=== PATIENT | female | born 1975 | race Caucasian/White ===

== ENCOUNTER → 2018-02-27 15:54 | Outpatient (CLI) | payer BC, SELFPAY ==
--- NOTE | 2018-02-27 15:54 | DT_ITS ---
This patient was seen during an EMR downtime February 23, 2018 - March 02, 2018. This patient may have a combination of paper and electronic documentation or all paper documentation. All documentation is viewable within the e-chart portion of [facility] for each patient visit.
[2018-02-28 06:14] LABS: Free T3 2.5 pg/mL (2.18-3.98); T4 Free Direct 1.16 ng/dL (0.76-1.46); Thyroid Stim Hormone (TSH) 2.43 uIU/mL (0.358-3.74)
== END ==
PROVIDERS: Family Provider Family Medicine; PCP Family Medicine; Visit Provider Family Medicine
DX: E03.9 Hypothyroidism, unspecified (principal)
CPT/HCPCS: 36415; 84439; 84443; 84481

== ENCOUNTER → 2018-05-08 15:56 | Outpatient (CLI) | payer BC, SELFPAY | PROVIDERS: Family Provider Family Medicine; PCP Family Medicine; Visit Provider Family Medicine | DX: Z12.31 Encounter for screening mammogram for malignant neoplasm of breast (principal) | CPT/HCPCS: 77063; 77067 ==

== ENCOUNTER → 2018-10-26 16:38 | Outpatient (CLI) | payer BC, SELFPAY ==
[2018-10-29 13:29] LABS: HPV Reflexed? NOT INDICATED
== END ==
PROVIDERS: Family Provider Family Medicine; PCP Family Medicine; Visit Provider Family Medicine
DX: Z12.4 Encounter for screening for malignant neoplasm of cervix (principal); Z01.419 Encounter for gynecological examination (general) (routine) without abnormal findings
CPT/HCPCS: 88175; G0145

== ENCOUNTER → 2018-11-17 15:30 | Outpatient (CLI) | payer BC, SELFPAY ==
--- NOTE | 2018-11-17 12:35 | US_ITS ---
STUDY: ULTRASOUND OF THE FEMALE PELVIS - COMPLETE REASON FOR EXAM: Female, 43 years old. Menorrhalgia LMP: November 09, 2018 TECHNIQUE: Transabdominal and endovaginal TECHNICAL QUALITY: Adequate. COMPARISON: None. FINDINGS: The uterus is anteverted and is in a midline position. The uterus measures 12.3 x 8.3 x 7.1 cm. Nabothian cysts at the uterine cervix. The endometrium measures 8.4 mm in thickness, and is hyperechoic. There is no demonstrated endometrial mass. There is heterogeneity of the myometrium with a 7.3 x 5.7 x 5.3 cm fibroid noted. The patient does not have an I.U.D. The right ovary is not visualized. The left ovary is visualized. The left ovary measures 4.3 x 2.4 x 2.3 cm. There is a 2 x 1.7 x 1.2 cm left ovarian cyst. There is normal arterial and normal venous vascularity. There is no fluid in the cul-de-sac. The urinary bladder has a volume of 266 cc. US/Pelvic (Non ) IMPRESSION: Uterine fibroid. Nabothian cysts. Left ovarian cyst. Nonvisualization of the right ovary. Electronically Signed: Peng Umanzor DO at 0:09 EST Tel [phone], Service support ,
--- NOTE | 2018-11-17 12:55 | US_ITS ---
STUDY: ULTRASOUND OF THE FEMALE PELVIS - COMPLETE REASON FOR EXAM: Female, 43 years old. Menorrhalgia LMP: November 09, 2018 TECHNIQUE: Transabdominal and endovaginal TECHNICAL QUALITY: Adequate. COMPARISON: None. FINDINGS: The uterus is anteverted and is in a midline position. The uterus measures 12.3 x 8.3 x 7.1 cm. Nabothian cysts at the uterine cervix. The endometrium measures 8.4 mm in thickness, and is hyperechoic. There is no demonstrated endometrial mass. There is heterogeneity of the myometrium with a 7.3 x 5.7 x 5.3 cm fibroid noted. The patient does not have an I.U.D. The right ovary is not visualized. The left ovary is visualized. The left ovary measures 4.3 x 2.4 x 2.3 cm. There is a 2 x 1.7 x 1.2 cm left ovarian cyst. There is normal arterial and normal venous vascularity. There is no fluid in the cul-de-sac. The urinary bladder has a volume of 266 cc. US/Transvaginal Non- IMPRESSION: Uterine fibroid. Nabothian cysts. Left ovarian cyst. Nonvisualization of the right ovary. Electronically Signed: Peng Umanzor DO at 0:09 EST Tel [phone], Service support ,
== END ==
PROVIDERS: Family Provider Family Medicine; PCP Family Medicine; Referring Provider Family Medicine; Visit Provider Family Medicine
DX: N85.2 Hypertrophy of uterus (principal); N92.0 Excessive and frequent menstruation with regular cycle
CPT/HCPCS: 76830; 76856; 93976

== ENCOUNTER 2019-02-04 09:57 | Day surgery (SDC) | payer BC, SELFPAY ==
[2018-12-02 09:23] VITALS: BMI 37.0
--- NOTE | 2019-01-25 13:25 | EKG12_ITS ---
Test Reason : PRE-OP Blood Pressure : / mmHG Vent. Rate : 068 BPM Atrial Rate : 068 BPM P-R Int : 156 ms QRS Dur : 098 ms QT Int : 394 ms P-R-T Axes : 028 -09 -02 degrees QTc Int : 418 ms Normal sinus rhythm Normal ECG No previous ECGs available Confirmed by AIDEN LINN, JEY ([id number]), managing editor DINESH MCKEON ([id number]) on 01/26/2019 1:55:18 PM Referred By: Darling West Confirmed By:JEY WOLFE MD
[2019-01-25 14:14] LABS: BUN 24 mg/dL (7-18); Creatinine, Serum 1.23 mg/dL (0.55-1.02); Glucose 89 mg/dL (74-106)
[2019-01-25 14:15] LABS: Anion Gap 8 (5-15); BUN/Creat Ratio 19.5 RATIO (10-20); Calcium,Total 8.3 mg/dL (8.5-10.1); Chloride 110 mmol/L (98-107); EST Glomerular Filtration Rate 50 mL/min (>60); Est Glom Filt Rate - Afr Amer 61 mL/min (>60); Potassium 3.8 mmol/L (3.5-5.1); Sodium Level 141 mmol/L (136-145); Thyroid Stim Hormone (TSH) 2.56 uIU/mL (0.358-3.74)
[2019-01-25 16:39] VITALS: BMI 37.0
--- NOTE | 2019-02-03 03:02 | PCM.HPOB.BLA ---
- Problem List (1) Dysmenorrhea Status: Acute (2) Uterine fibroid Status: Acute Qualifiers: Comment: lavh bs cysto (3) Essential hypertension Status: Chronic (4) Hypothyroidism Status: Chronic History and Physical Date of Admission: 02/04/19 Vital Signs 01/25/19 Height 5 ft 3 in 01/25/19 Weight: 211 lb 2 oz 01/25/19 Body Mass Index (BMI) 37.3 01/25/19 Blood Pressure 158/90 H Intake Visit Reasons: LAVH BS CYSTO ERAS PRE OP Toilet Products Molder Required: No Is patient in pain?: No Allergies sulfamethoxazole [From Bactrim] Allergy (Mild, Verified 01/25/19 16:07) hives trimethoprim [From Bactrim] Allergy (Mild, Verified 01/25/19 16:07) hives Medications levothyroxine 25 mcg capsule 25 mcg PO DAILY 12/02/18 [History Confirmed 01/25/19] lisinopril 20 mg-hydrochlorothiazide 25 mg tablet 1 tab PO DAILY 12/02/18 [History Confirmed 01/25/19] Is last menstrual period known: No Patient : No : No [facility] Medical History Hypothyroidism (Chronic) Essential hypertension (Chronic) Abnormal Pap smear of cervix (Acute) Surgical History S/P (Resolved) Family History Father CVA (cerebral vascular accident) Hypertension Parkinsons disease Diabetes Mother Hypertension Sister Diabetes Social History Smoking Status: Never smoker alcohol intake: never substance use type: does not use caffeine: Yes what type of physical activity do you participate in: none seatbelt use: always do you feel safe at home: Yes additional social history: - [place] Patient works at [employer] LAVH BS CYSTO ERAS PRE OP: Details: LYUBOV ROBERTS is a 43 year old who presents for preop visit. she has heavy vaginal bleding with menses, has an enlarged firboid uterus 8 cm and 3 previous c sections. Female Reproductive History Menopausal Symptoms: No night sweats Pregancy History 4 Elective abortions Hx Para 3 Spontaneous abortions Hx # Term Pregnancies Ectopic pregnancies Hx # Pregnancies Multiple births # of living children Past Pregnancies Del. Date Name GA/Weeks Outcome Route Bth Weight Infant Gen Labor Lgth Anesthesia Del Locatn Provider FOB Unknown Ajay-1990 Unknown Debbie-1993 Unknown Ren-1998 ROS Const Constitutional: Denies fatigue, night sweats, weight gain or weight loss ENT ENT: Reports system reviewed and no additional complaints, except as docu Cardio Card: Denies chest pain Resp Resp: Denies cough or dyspnea GI GI: Reports as per HPI; denies abdominal pain, constipation, nausea or vomiting : Denies nipple discharge Musc Musc: Denies joint pain, back pain or muscle weakness Skin Skin/Breast: Denies hair loss, change in hair, dry skin, breast lump, breast pain, breast skin changes or nipple discharge Neuro Neuro: Reports system reviewed and no additional complaints, except as docu Psych Psych: Reports system reviewed and no additional complaints, except as docu Endo Endo: Denies cold intolerance, excessive sweating, heat intolerance or increased thirst Chilo/Lymph Hematologic/Lymphatic: Denies easy bleeding, Denies easy bruising, Denies enlarged lymph nodes Exam Const General: cooperative, healthy appearing, comfortable, no acute distress, well developed Orientation: alert HENDC Head: normal to inspection, normocephalic Ears: hearing grossly normal bilaterally, external ears normal Nose: external nose normal, nares normal Face and sinus: normal facial exam Neck Neck: normal visual inspection, no lymphadenopathy Thyroid: thyroid normal Chest Chest palpation & inspection: normal inspection of the chest Resp Effort & Inspection: normal respiratory effort Auscultation: clear to auscultation bilaterally Cardio Rate: regular rate Rhythm: regular rhythm Heart Sounds: S1 normal, S2 normal GI Inspection: normal to inspection, non-distended Palpation: soft (enlarged uterus 14 weeks size), no hepatosplenomegaly Musc Other: gross motor intact no deficits, full bilateral strength Skin General: no rashes or lesions noted Neuro General: alert, awake, moves all extremities, no focal motor deficits Motor: muscle tone normal throughout Extrem General: normal to inspection, no pedal edema Psych Appearance: grossly normal Mental Status: mental status grossly normal Affect: normal affect Speech and Movement: speech and movement normal Assessment & Plan Problems 1. Uterine leiomyoma, unspecified location D25.9 lavh bs cysto 2. Dysmenorrhea N94.6 Plan discussed surgical risks including risks of anesthesia, infection, bleeding, injury to bowel, bladder or blood vessels, and patient wishes to proceed with surgery. Coding Level of Care Code No Charge Diagnoses Uterine leiomyoma, unspecified location D25.9 ??Uterine leiomyoma location: unspecified location Dysmenorrhea N94.6 UPDATE- I have seen the patient and performed any clinically relevant updates to the history and physical exam. Darling West MD
[2019-02-04] VITALS (12 sets, daily range): BP systolic 114–147; BP diastolic 65–93; PULSE 53–92; RESP 14–18; TEMP 36.3–37; O2SAT 97–100; BMI 36.5
--- NOTE | 2019-02-04 | HYST_PTH ---
PATIENT: LYUBOV ROBERTS LOC: [facility] [place] U#:[id number] AGE/SX: 43/F ROOM: RE02/04/[address]: Dr. Darling West MD : [id number] BED: DIS: 02/05/2019 SPEC #: [id number] RECD: 02/05/19 08:31 STATUS: SAMUEL ALEKSANDRA #: [id number] ROHAN: 02/04/19 00:[address]: Darling West DEPT: SURGICAL PATHOLOGY RECD BY: Minesh Thomas ENTERED: 02/05/19 09:10 SP TYPE: HYSTERECT OTHR DR: Dr. Tamica Looney DO Tissues: Uterus, NOS Procedures: Surgery Specimen Level V HEADER OPERATION: ERAS, laparoscopic-assisted vaginal hysterectomy, bilateral salpingectomy PRE-OP DIAGNOSIS: Uterine leiomyoma; dysmenorrhea TISSUE SUBMITTED: Uterus and bilateral fallopian tubes MICROSCOPIC DIAGNOSIS Uterus, hysterectomy: Cervix - nabothian cyst. Endometrium - proliferative endometrium with mild chronic inflammation. Myometrium - leiomyoma and focal superficial adenomyosis. Fallopian tubes - benign paratubal cysts. AM:phillip 02/09/19 MICROSCOPIC DESCRIPTION Slides are reviewed. GROSS DESCRIPTION Received in fixative is one container labeled with the patient's name and designated uterus. The specimen consists of a morcellated specimen received in eight fragments ranging in size from 1 to 13 cm and in aggregate weighing 268 gm. The presumed cervical fragment measures 6 cm in length. The presumed endocervical cavity is grossly unremarkable. A distinct endometrial cavity is not identified due to fragmentation of the specimen. The myometrium is lobulated and the cut surfaces are cee-white in color in an area measuring approximately 6 cm in greatest dimension. Two fallopian tubes are present. Each fallopian tube has an average length of 4.5 cm and a maximal diameter of 0.5 cm. Prototype Deicer Assembler sections are submitted as follows: 1 - cervix and endocervix, 2 & 3 - presumed endometrium and adjacent myometrium, 4 - myometrium, 5 & 6 - lobulated area of myometrium, presumed leiomyoma, 7 - one fallopian tube, 8 - the other fallopian tube. / AM:phillip 02/08/19 TC:1 CPT: 16267
[2019-02-04 10:36] LABS: Internal QC Validated? YES +Cl - CLEAR BKGD
[2019-02-04 10:37] LABS: Pregnancy, Urine Negative Negative
[2019-02-04 10:43] LABS: Hematocrit 37.2 % (37-47); Hemoglobin 12.5 g/dl (12.0-15.0); Mean Corp Hgb Conc 33.6 g/gl (32-36); Mean Corpuscular Hgb 28.6 pg (27.0-32.0); Mean Corpuscular Volume 85.1 fL (81-99); Mean Platelet Vol. 9.8 fl (6.2-12.0); Platelet Count 264 K/mm3 (150-450); RBC Distribution Width CV 12.6 % (11.6-14.6); RBC Distribution Width SD 38.2 fl (35.1-43.9); Red Blood Count 4.37 M/mm3 (4.2-5.4)
[2019-02-04 10:44] LABS: Scan Indicated on CBC? Y/N NO
[2019-02-04] MEDS: Scopolamine 1mg/72hr Patch 1 PATCH TRANSDERM. (10:55)
[2019-02-04] MEDS: Celecoxib 200 MG Capsule 400 MG PO (11:00)
[2019-02-04] MEDS: Gabapentin 600 MG Tablet PO (11:01)
[2019-02-04] MEDS: Acetaminophen 500 MG Tablet 1000 MG PO ×2 (11:01→19:20)
[2019-02-04] MEDS: Enoxaparin 40 MG/0.4 ML Syringe SC (11:02)
[2019-02-04] MEDS: Phenazopyridine 95 MG Tablet 190 MG PO (11:14)
[2019-02-04 11:25] LABS: Bedside Glucose 78 mg/dL (70-110)
[2019-02-04] MEDS: dexAMETHasone 10 MG/ML Vial 8 MG IV (11:40)
[2019-02-04] MEDS: Magnesium Sulfate 4gm/100mL 4 GM/100 ML IV.SOLN. IV (11:41)
[2019-02-04] MEDS: Lactated Ringers 1,000 ML 70 ML IV (11:41)
[2019-02-04] MEDS: Cefazolin 2 GM in 0.9% Normal Saline 100 ML IV (12:21)
[2019-02-04] MEDS: Bupivacaine 0.25% 30 ML Vial (15:00)
[2019-02-04] MEDS: Vasopressin 20 UNITS/ML Vial (15:31)
[2019-02-04] MEDS: Ondansetron 4 MG/2 ML Vial IV (15:58)
[2019-02-04] MEDS: Ketorolac 30 MG/ML Syringe IV (17:44)
--- NOTE | 2019-02-04 19:59 | PCM.OPRPT ---
Problem List (1) Dysmenorrhea Status: Acute (2) Uterine fibroid Status: Acute Qualifiers: Comment: lavh bs cysto (3) Essential hypertension Status: Chronic (4) Hypothyroidism Status: Chronic Report of Operation Date of Procedure: 02/04/19 Pre-Operative Diagnosis: Enlarged uterus with fibroids previous x3 abnormal uterine bleeding Post-Operative Diagnosis: Same plus severe uterine to anterior abdominal wall and bladder scar tissue Surgery/Procedure Performed:: Laparoscopic assisted vaginal hysterectomy bilateral salpingectomy cystoscopy and extensive lysis of adhesions Description of Surgical Findings:: Uterus completely adherent to the anterior abdominal wall and bladder with bilateral adhesions of the fallopian tubes to the anterior abdominal wall. Omental to anterior abdominal wall adhesions. Normal ovaries bilaterally normal bladder lining specialty sales consultant: Cleopatra Woods Type of Anesthesia:: General Special Medications: Charly Specimen's removed: Uterus tubes Drains: Neumann Estimated Blood Loss (mL): 150 cc Fluids Replaced: Crystalloid Description of Procedure: Patient received preoperative antibiotics and SCDs were on preoperatively. Patient was taken back to the operating room and placed in the dorsal lithotomy position. General anesthesia was induced and patient was prepped and draped in normal sterile fashion. Uterine manipulator was placed inside the uterus and Neumann catheter placed in the bladder. The umbilicus was grasped with towel clamps and an intraumbilical incision was made after injecting with quarter percent Marcaine and a Veress needle entered into the abdomen confirmed to be intra-abdominal with a low opening pressure. Abdomen was insufflated with CO2 gas and the Veress needle removed and the 5 mm trocar was placed under direct visualization without complication. Right and left lower quadrants were transilluminated and injected with quarter percent Marcaine and 5 mm ports placed under direct visualization. Pelvis was well visualized see operative findings for additional information. Bilateral fallopian tubes were identified and transected with the LigaSure device across the mesosalpinx to the level of the utero-ovarian ligament which was also transected with the LigaSure device. Severe anterior abdominal wall adhesions were noted and all adhesions were taken down both bluntly and with the LigaSure device and with hydrodissection. The broad ligament was opened up by transecting the round ligament bilaterally and skeletonizing the uterine vessels bilaterally and creating a bladder flap using the LigaSure device. The uterine arteries were transected bilaterally with good visualization of the bladder and the ureters were seen to be inferior lateral to the operative area. Attention was then paid to the vaginal portion of the procedure and the cervix was grasped with Regina clamps and circumferentially injected with dilute vasopressin. A circumferential incision was made and the vaginal mucosa was mobilized off posteriorly and the cul-de-sac entered into sharply and a longneck speculum placed. The anterior cul-de-sac was then identified and entered into sharply. The uterosacral ligaments were clamped cut and suture ligated with 0 Monocryl bilaterally followed by the cardinal ligaments which were clamped cut and suture ligated bilaterally with 0 Monocryl. The uterus serially descended and was removed without difficulty with minimal morcellation. Pelvic sidewall pedicles were checked and noted to have excellent hemostasis. The vaginal mucosa was reapproximated incorporating the posterior peritoneum. This was reapproximated using 0 Vicryl [id number] sutures. Excellent hemostasis was noted. The cystoscopy was then performed and bilateral ureteral strong spray was noted and the bladder was noted to have no abnormality or lesions seen. Neumann catheter was replaced and then attention paid to the abdominal portion of the procedure again. The pelvis and cul-de-sac was well visualized and no significant active bleeding noted but some raw areas were seen on the peritoneum and therefore Charly was applied. Pressure was taken down and the areas visualized and noted of excellent hemostasis. All ports were removed under direct visualization without complication and the abdomen was desufflated of air. The instruments removed from the abdomen and the vagina vaginal sweep was negative. Port sites on the abdomen were closed with 4-0 Monocryl interrupted sutures and Steri's and windows were applied. She was awoken and taken recovery in stable condition. Grafts/Implants Used: None - Complications None - Admit VTE Documentation VTE Present on Admission: No VTE Mechan Device Prophylaxis: SCD's VTE Pharm Prophylaxis ordered?: Yes
[2019-02-04] MEDS: Docusate Sodium 100 MG Capsule PO (21:38)
[2019-02-05] MEDS: Acetaminophen 500 MG Tablet 1000 MG PO ×2 (00:01→05:59)
[2019-02-05] MEDS: Ketorolac 30 MG/ML Syringe IV ×2 (00:02→05:59)
[2019-02-05 00:08] VITALS: BP 142/93; PULSE 92; RESP 16; TEMP 37.1; O2SAT 97
[2019-02-05 02:30] VITALS: O2SAT 97
[2019-02-05 03:55] VITALS: BP 157/95; PULSE 110; RESP 16; TEMP 36.9; O2SAT 95
[2019-02-05] MEDS: oxyCODONE 5 MG Tablet PO ×2 (04:06→10:12)
[2019-02-05 05:49] VITALS: PULSE 95
[2019-02-05] MEDS: 0.9% NaCl Peripheral Flush Adult/Peds IV (05:59)
[2019-02-05 06:18] LABS: Hematocrit 33.4 % (37-47); Hemoglobin 11.3 g/dl (12.0-15.0); Mean Corp Hgb Conc 33.8 g/gl (32-36); Mean Corpuscular Hgb 28.8 pg (27.0-32.0); Mean Corpuscular Volume 85.2 fL (81-99); Mean Platelet Vol. 9.6 fl (6.2-12.0); Platelet Count 261 K/mm3 (150-450); RBC Distribution Width CV 12.7 % (11.6-14.6); Red Blood Count 3.92 M/mm3 (4.2-5.4); White Blood Count 12.5 K/mm3 (4.4-11.0)
[2019-02-05 06:20] LABS: Scan Indicated on CBC? Y/N NO
[2019-02-05 06:47] VITALS: O2SAT 94
[2019-02-05 07:50] VITALS: BP 134/84; PULSE 97; RESP 16; TEMP 37.1; O2SAT 97
[2019-02-05] MEDS: Levothyroxine 25 MCG TABLET PO (07:50)
--- NOTE | 2019-02-05 09:14 | DCINST_ITS ---
Discharge Diet: No Restrictions Discharge Activity: Return to Normal Activity, May Not Drive, May Shower May resume sexual activity in: 6-8 weeks Call your doctor if your incision/area has: Continuous Slow Oozing, Sudden Increased Bleeding, Increased Pain/ Swelling, Increased Redness, Foul Smelling Discharge Call your doctor if you observe: Fever of 101 or Higher, Inability to urinate, Inability to have a bowel movement, Using more than one pad per hour Allergies/Adverse Reactions: Allergies sulfamethoxazole [From Bactrim] Allergy (Mild, Verified 02/04/19 10:47) hives trimethoprim [From Bactrim] Allergy (Mild, Verified 02/04/19 10:47) hives Medications to take at Discharge levothyroxine 25 mcg capsule 25 mcg PO DAILY 12/02/18 lisinopril 20 mg-hydrochlorothiazide 25 mg tablet 1 tab PO DAILY 12/02/18 Naproxen [Naprosyn] 250 - 500 mg PO Q8H PRN PRN #30 tablet 02/04/19 Oxycodone HCl/Acetaminophen [Percocet 5-325] 1 - 2 tablet PO Q4H PRN PRN 7 Days #15 tablet 02/04/19 The following prescriptions were given: Oxycodone HCl/Acetaminophen [Percocet 5-325] 1 - 2 tablet PO Q4H PRN PRN 7 Days #15 tablet PRN Reason: Pain Naproxen [Naprosyn] 250 - 500 mg PO Q8H PRN PRN #30 tablet PRN Reason: MILD PAIN Primary Care Physician: Tamica Looney DO [Primary Care Provider] - Test Results: Test results from this visit will be discussed in further detail at your follow- up appointment, if applicable. Please Follow Up With: Darling West MD - [phone]
--- NOTE | 2019-02-05 09:14 | PCM.PN.OB ---
Subjective: doing well no complaints dc home today - Physical Exam General: Alert, Cooperative Vital Signs Temp Pulse Resp BP Pulse Ox 98.5 F 95 16 157/95 H 95 02/05/19 03:55 02/05/19 05:49 02/05/19 03:55 02/05/19 03:55 02/05/19 03:55 Oxygen Flow Rate (L/min) 1 Oxygen Delivery Method Room Air Weight: 206 lb 5.643 oz Body Mass Index (BMI) 36.5 Intake and Output for Last 24 Hours 02/03/19 02/04/19 02/05/19 23:59 23:59 23:59 Intake Total 2650 / 2650 1423 / 1423 Output Total 350 / 350 1000 / 1000 Balance 2300 / 2300 423 / 423 Laboratory Tests Past 24 Hrs 02/04/19 02/04/19 02/04/19 10:21 10:36 10:36 WBC 5.0 RBC 4.37 Hgb 12.5 Hct 37.2 MCV 85.1 MCH 28.6 MCHC 33.6 RDW 12.6 RDW Differential 38.2 Plt Count 264 MPV 9.8 Urine Test Negative Blood Type A POSITIVE Antibody Screen NEGATIVE 02/05/19 05:58 WBC 12.5 H RBC 3.92 L Hgb 11.3 L Hct 33.4 L MCV 85.2 MCH 28.8 MCHC 33.8 RDW 12.7 RDW Differential 39.0 Plt Count 261 MPV 9.6 Urine Test Blood Type Antibody Screen POC Glucose 02/04/19 11:16 POC Glucose 78 Medical Necessity - Tobacco Use Smoking Status: Never smoker Tobacco Use: Non-smoker Assessment/Plan All Active Problems (Last Reviewed 01/25/19 @ 16:08 by Raina Fair) Dysmenorrhea (Acute) Uterine fibroid (Acute) pod 1 lavh doing well routine care dc home
[2019-02-05] MEDS: Docusate Sodium 100 MG Capsule PO (10:12)
== END 2019-02-05 10:45 | disposition home or self-care (01) ==
LOC: SDC 09:59 → AC 10:20 → MS3 12:04
PROVIDERS: Family Provider Family Medicine; PCP Family Medicine; Referring Provider Obstetrics & Gynecology; Visit Provider Obstetrics & Gynecology
PROC: 0UT9FZZ Resection of Uterus, Via Natural or Artificial Opening With Percutaneous Endoscopic Assistance (ICD-10-PCS; CPT 58552; principal; 2019-02-04 11:45)
DX: N94.6 Dysmenorrhea, unspecified (principal); N83.8 Other noninflammatory disorders of ovary, fallopian tube and broad ligament; N88.8 Other specified noninflammatory disorders of cervix uteri; D26.1 Other benign neoplasm of corpus uteri; N73.6 Female pelvic peritoneal adhesions (postinfective); E03.9 Hypothyroidism, unspecified; I10 Essential (primary) hypertension; Z88.2 Allergy status to sulfonamides
CPT/HCPCS: 58552; 36415; 80048; 81025; 82962; 84443; 85027; 86850; 86900; 88307; 93005; 94762; J7120; A4216; J2405

== ENCOUNTER → 2019-05-17 13:41 | Outpatient (CLI) | payer BC, SELFPAY ==
[2019-03-17 10:40] VITALS: BMI 36.5
--- NOTE | 2019-05-17 13:44 | RAD_ITS ---
STUDY: X-RAY - PARANASAL SINUSES REASON FOR EXAM: Female, 43 years old. Recurrent sinus pain. TECHNIQUE: 4 view(s) of the paranasal sinuses were obtained. COMPARISON: None. FINDINGS: Normal visualized frontal, maxillary, ethmoidal and sphenoid sinuses. Normal visualized facial bones. The soft tissue structures are unremarkable. RAD/Sinuses min 3 Views IMPRESSION: Normal x-rays of the paranasal sinuses. Electronically Signed: Errol Jiménez, at 15:48 EDT , Service support ,
--- NOTE | 2019-05-17 14:07 | RAD_ITS ---
STUDY: X-RAY CHEST REASON FOR EXAM: Female, 43 years old. Chest tightness. TECHNIQUE: PA and lateral views of the chest. COMPARISON: None. FINDINGS: The lungs are clear and expanded. There is no demonstrated pleural abnormality. Normal size heart. Normal mediastinum and jocelin. Normal visualized pulmonary arteries. Normal visualized aortic arch and descending thoracic aorta. There are diffuse degenerative changes of the visualized thoracic spine. Increased kyphosis. Normal visualized ribs, clavicles, and shoulders. There is no demonstrated abnormality of the visualized soft tissue structures of the upper abdomen. RAD/Chest PA and Lateral IMPRESSION: No acute abnormality is seen. Electronically Signed: Errol Jiménez, at 15:48 EDT , Service support ,
== END ==
PROVIDERS: Family Provider Family Medicine; PCP Family Medicine; Referring Provider Family Medicine; Visit Provider Family Medicine
DX: J32.9 Chronic sinusitis, unspecified (principal); R05 Cough
CPT/HCPCS: 70220; 71046

== ENCOUNTER → 2019-07-13 15:41 | Outpatient (CLI) | payer BC, SELFPAY ==
[2019-03-17 10:40] VITALS: BMI 36.5
--- NOTE | 2019-07-13 15:43 | BI_ITS ---
MAMMOGRAPHY - BILATERAL SCREENING REASON FOR EXAM: Female, 43 years old. Routine annual screening examination. PERTINENT HISTORY: Non-contributory. TECHNIQUE: Digital bilateral breast [place] (3D mammographic acquisition) in the CC and MLO projections. 2-D mediolateral oblique (MLO) and craniocaudad (CC) views of both breasts were obtained. CAD: Full Field Digital Mammography with Computer Added Detection was performed. COMPARISON: Comparison is made with prior study dated May 08, 2018. FINDINGS: Breast Composition: There are scattered areas of fibroglandular density. There are no dominant masses or suspicious calcifications. Stable small benign-appearing bilateral axillary lymph nodes. No other significant abnormalities are identified. There has been no significant change since the prior study. BI/SCREEN MAMM (CAD) W/[place] BILAT IMPRESSION: Stable bilateral screening mammogram. Yearly follow-up mammogram recommended. (A) ASSESSMENT CATEGORY: BIRADS Category 2: Benign. A letter regarding these results will be sent to the patient by the facility within 30 days. Approximately 10% of breast cancers are not detected by mammography. A normal mammogram should not delay biopsy of a clinically suspicious abnormality. [id number] Electronically Signed: Errol Jiménez, at 8:38 EDT , Service support ,
== END ==
PROVIDERS: Family Provider Family Medicine; PCP Family Medicine; Referring Provider Family Medicine; Visit Provider Family Medicine
DX: Z12.31 Encounter for screening mammogram for malignant neoplasm of breast (principal)
CPT/HCPCS: 77063; 77067

== ENCOUNTER → 2021-08-31 15:44 | Outpatient (CLI) | payer OTHER, SELFPAY ==
[2021-08-31 16:21] LABS: Absolute Lymphocyte Count 2.09 X10^3/uL (0.83-4.51); Absolute Neutrophil Count 4.8 X10^3/uL (2.0-7.7); Basophil# 0.06 X10^3/uL; Basophil% 0.8 % (0-1); Eosinophil# 0.16 X10^3/uL; Hematocrit 39.2 % (37-47); Hemoglobin 13.2 g/dL (12.0-15.0); Lymphocyte # 2.09 X10^3/ul (0.83-4.51); Lymphocyte % 26.8 % (19-41); Mean Corp Hgb Conc 33.7 g/dL (32-36); Mean Corpuscular Hgb 29.9 pg (27.0-32.0); Mean Corpuscular Volume 88.9 fL (81-99); Mean Platelet Vol. 10.1 fl (6.2-12.0); Monocyte# 0.63 X10^3/uL; Monocyte% 8.1 % (0-10); NRBC Flagged by Analyzer 0 % (0-5); Neutrophil # 4.83 X10^3/uL (2.7-7.7); Neutrophil % 61.8 % (47-70); Platelet Count 293 K/mm3 (150-450); RBC Distribution Width CV 11.9 % (11.6-14.6); RBC Distribution Width SD 38.6 fl (35.1-43.9); Red Blood Count 4.41 M/mm3 (4.2-5.4); White Blood Count 7.8 K/mm3 (4.4-11.0)
[2021-08-31 17:06] LABS: ALB/GLOB Ratio 0.9 RATIO (0.9-2.4); AST(SGOT) 14 U/L (15-37); Alanine Aminotransfer ALT/SGPT 28 U/L (13-56); Albumin, Serum 3.6 g/dL (3.2-5.0); Alkaline Phosphatase 53 U/L (45-117); Anion Gap 6 (5-15); BUN 18 mg/dL (7-18); BUN/Creat Ratio 16.7 RATIO (10-20); Calcium,Total 8.9 mg/dL (8.5-10.1); Chloride 106 mmol/L (98-107); Cholesterol 201 mg/dL (200); Creatinine, Serum 1.08 mg/dL (0.55-1.02); EST Glomerular Filtration Rate 58 mL/min (>60); Est Glom Filt Rate - Afr Amer 70 mL/min (>60); Free T3 2.4 pg/mL (2.18-3.98); Glucose 68 mg/dL (74-106); High Density Lipoprotein 57 mg/dL; Potassium 3.7 mmol/L (3.5-5.1); Protein, Total 7.6 g/dL (6.4-8.2); Sodium Level 138 mmol/L (136-145); T4 Free Direct 1.07 ng/dL (0.76-1.46); Thyroid Stim Hormone (TSH) 2.27 uIU/mL (0.358-3.74); Triglycerides 102 mg/dL; Very Low Density Lipoprotein 20 mg/dL (5-40)
== END ==
PROVIDERS: PCP Family Medicine; Visit Provider Family Medicine
DX: Z00.00 Encounter for general adult medical examination without abnormal findings (principal); Z51.81 Encounter for therapeutic drug level monitoring; E03.9 Hypothyroidism, unspecified
CPT/HCPCS: 36415; 80053; 80061; 84439; 84443; 84481; 85025

== ENCOUNTER 2021-11-12 15:53 | Outpatient (CLI) | payer BC, SELFPAY ==
--- NOTE | 2021-11-12 15:56 | BI_ITS ---
MAMMOGRAPHY - BILATERAL SCREENING REASON FOR EXAM: Female, 46 years old. Routine annual screening examination. PERTINENT HISTORY: Non-contributory. TECHNIQUE: Digital bilateral breast [place] (3D mammographic acquisition) in the CC and MLO projections. 2-D mediolateral oblique (MLO) and craniocaudad (CC) views of both breasts were obtained. CAD: Full Field Digital Mammography with Computer Added Detection was performed. COMPARISON: Comparison is made with prior study date 07/13/2019 and 05/08/2018. FINDINGS: Breast Composition: There are scattered areas of fibroglandular density. There are no dominant masses or suspicious calcifications. No other significant abnormalities are identified. There has been no significant change since the prior study. BI/SCRN MAMM (CAD)W/[place] BILAT IMPRESSION: Stable bilateral screening mammogram. Yearly follow-up mammogram recommended. (A) ASSESSMENT CATEGORY: BIRADS Category 1: Negative. A letter regarding these results will be sent to the patient by the facility within 30 days. Approximately 10% of breast cancers are not detected by mammography. A normal mammogram should not delay biopsy of a clinically suspicious abnormality. [id number] Electronically Signed: Errol Jiménez MD at 8:40 EST ,
== END 2021-11-12 23:59 | disposition home or self-care (01) ==
LOC: OPBI 15:54
PROVIDERS: PCP Family Medicine; Referring Provider Family Medicine; Visit Provider Family Medicine
DX: Z12.31 Encounter for screening mammogram for malignant neoplasm of breast (principal)
CPT/HCPCS: 77063; 77067

== ENCOUNTER → 2022-09-19 | Outpatient (CLI) | payer BC, SELFPAY ==
[2022-09-19 17:51] LABS: Absolute Lymphocyte Count 2.23 X10^3/uL (0.83-4.51); Absolute Neutrophil Count 5.3 X10^3/uL (2.0-7.7); Basophil# 0.06 X10^3/uL; Basophil% 0.7 % (0-1); Eosinophil# 0.16 X10^3/uL; Eosinophils% 1.9 % (0-5); Hematocrit 37.2 % (37-47); Lymphocyte # 2.23 X10^3/ul (0.83-4.51); Lymphocyte % 26.7 % (19-41); Mean Corp Hgb Conc 34.9 g/dL (32-36); Mean Corpuscular Hgb 30.8 pg (27.0-32.0); Mean Corpuscular Volume 88.2 fL (81-99); Mean Platelet Vol. 10.1 fl (6.2-12.0); Monocyte# 0.53 X10^3/uL; Monocyte% 6.4 % (0-10); NRBC Flagged by Analyzer 0 % (0-5); Neutrophil # 5.31 X10^3/uL (2.7-7.7); Neutrophil % 63.7 % (47-70); Platelet Count 294 K/mm3 (150-450); RBC Distribution Width CV 12.2 % (11.6-14.6); Red Blood Count 4.22 M/mm3 (4.2-5.4); White Blood Count 8.3 K/mm3 (4.4-11.0)
[2022-09-19 18:53] LABS: ALB/GLOB Ratio 0.9 RATIO (0.9-2.4); AST(SGOT) 9 U/L (15-37); Alanine Aminotransfer ALT/SGPT 26 U/L (13-56); Albumin, Serum 3.6 g/dL (3.2-5.0); Alkaline Phosphatase 47 U/L (45-117); Anion Gap 7 (5-15); BUN 23 mg/dL (7-18); BUN/Creat Ratio 20.5 RATIO (10-20); Calcium,Total 8.7 mg/dL (8.5-10.1); Chloride 105 mmol/L (98-107); Creatinine, Serum 1.12 mg/dL (0.55-1.02); EST Glomerular Filtration Rate 55 mL/min (>60); Est Glom Filt Rate - Afr Amer 67 mL/min (>60); Free T3 2.2 pg/mL (2.18-3.98); Globulin 4.1 g/dL (2.2-4.2); Glucose 96 mg/dL (74-106); Potassium 3.7 mmol/L (3.5-5.1); Protein, Total 7.7 g/dL (6.4-8.2); Sodium Level 136 mmol/L (136-145); T4 Free Direct 0.93 ng/dL (0.76-1.46); Thyroid Stim Hormone (TSH) 3.01 uIU/mL (0.358-3.74)
== END | disposition home or self-care (01) ==
PROVIDERS: PCP Family Medicine; Visit Provider Family Medicine
DX: E03.9 Hypothyroidism, unspecified (principal); Z51.81 Encounter for therapeutic drug level monitoring
CPT/HCPCS: 36415; 80053; 84439; 84443; 84481; 85025

== ENCOUNTER → 2023-01-07 | Outpatient (CLI) | payer BC, SELFPAY ==
[2023-01-07 18:12] LABS: Free T3 2.5 pg/mL (2.18-3.98); T4 Free Direct 1.07 ng/dL (0.76-1.46); Thyroid Stim Hormone (TSH) 2.79 uIU/mL (0.358-3.74)
== END | disposition home or self-care (01) ==
LOC: BFHLAB 16:14
PROVIDERS: PCP Family Medicine; Referring Provider Family Medicine; Visit Provider Family Medicine
DX: E03.9 Hypothyroidism, unspecified (principal)
CPT/HCPCS: 36415; 84439; 84443; 84481

== ENCOUNTER → 2023-04-04 | Outpatient (CLI) | payer BC, SELFPAY ==
[2023-04-04 18:25] LABS: Free T3 2.4 pg/mL (2.18-3.98); T4 Free Direct 1.03 ng/dL (0.76-1.46); Thyroid Stim Hormone (TSH) 2.29 uIU/mL (0.358-3.74)
== END | disposition home or self-care (01) ==
LOC: BFHLAB 15:52
PROVIDERS: PCP Family Medicine; Referring Provider Family Medicine; Visit Provider Family Medicine
DX: E03.9 Hypothyroidism, unspecified (principal)
CPT/HCPCS: 36415; 84439; 84443; 84481

== ENCOUNTER → 2024-09-29 | Outpatient (CLI) | payer BC, SELFPAY ==
[2024-09-29 16:48] LABS: Absolute Lymphocyte Count 1.84 X10^3/uL (0.83-4.51); Absolute Neutrophil Count 4.4 X10^3/uL (2.0-7.7); Basophil# 0.06 X10^3/uL; Basophil% 0.8 % (0-1); Eosinophil# 0.21 X10^3/uL; Eosinophils% 2.9 % (0-5); Hematocrit 36.1 % (37-47); Hemoglobin 12.4 g/dL (12.0-15.0); Lymphocyte # 1.84 X10^3/ul (0.83-4.51); Lymphocyte % 25.7 % (19-41); Mean Corp Hgb Conc 34.3 g/dL (32-36); Mean Corpuscular Hgb 29.5 pg (27.0-32.0); Mean Corpuscular Volume 85.7 fL (81-99); Mean Platelet Vol. 9.8 fl (6.2-12.0); Monocyte# 0.57 X10^3/uL; Monocyte% 7.9 % (0-10); NRBC Flagged by Analyzer 0 % (0-5); Neutrophil # 4.44 X10^3/uL (2.7-7.7); Platelet Count 287 K/mm3 (150-450); RBC Distribution Width CV 12.4 % (11.6-14.6); RBC Distribution Width SD 38.7 fl (35.1-43.9); Red Blood Count 4.21 M/mm3 (4.2-5.4); White Blood Count 7.2 K/mm3 (4.4-11.0)
[2024-09-29 17:33] LABS: ALB/GLOB Ratio 0.9 RATIO (0.9-2.4); AST(SGOT) 18 U/L (15-37); Alanine Aminotransfer ALT/SGPT 40 U/L (13-56); Albumin, Serum 3.5 g/dL (3.2-5.0); Alkaline Phosphatase 62 U/L (45-117); Anion Gap 6 (5-15); BUN 22 mg/dL (7-18); BUN/Creat Ratio 21.2 RATIO (10-20); Calcium,Total 8.9 mg/dL (8.5-10.1); Chloride 102 mmol/L (98-107); Creatinine, Serum 1.04 mg/dL (0.55-1.02); EST Glomerular Filtration Rate 59 mL/min (>60); Est Glom Filt Rate - Afr Amer 72 mL/min (>60); Free T3 2.5 pg/mL (2.18-3.98); Globulin 4.1 g/dL (2.2-4.2); Glucose 121 mg/dL (74-106); Potassium 3.9 mmol/L (3.5-5.1); Protein, Total 7.6 g/dL (6.4-8.2); Sodium Level 136 mmol/L (136-145); T4 Free Direct 1.07 ng/dL (0.76-1.46)
== END | disposition home or self-care (01) ==
LOC: LAB 15:48
PROVIDERS: PCP Family Medicine; Referring Provider Family Medicine; Visit Provider Family Medicine
DX: E03.9 Hypothyroidism, unspecified (principal); Z51.81 Encounter for therapeutic drug level monitoring
CPT/HCPCS: 36415; 80053; 84439; 84443; 84481; 85025

== ENCOUNTER → 2024-11-03 | Outpatient (CLI) | payer BC, SELFPAY ==
[2024-11-03 18:03] LABS: Absolute Neutrophil Count 4.7 X10^3/uL (2.0-7.7); Basophil# 0.06 X10^3/uL; Basophil% 0.8 % (0-1); Eosinophil# 0.19 X10^3/uL; Eosinophils% 2.7 % (0-5); Hematocrit 36.6 % (37-47); Hemoglobin 12.1 g/dL (12.0-15.0); Lymphocyte % 23.9 % (19-41); Mean Corp Hgb Conc 33.1 g/dL (32-36); Mean Corpuscular Hgb 29.2 pg (27.0-32.0); Mean Corpuscular Volume 88.2 fL (81-99); Mean Platelet Vol. 9.7 fl (6.2-12.0); Monocyte# 0.46 X10^3/uL; Monocyte% 6.5 % (0-10); NRBC Flagged by Analyzer 0 % (0-5); Neutrophil # 4.67 X10^3/uL (2.7-7.7); Neutrophil % 65.7 % (47-70); Platelet Count 281 K/mm3 (150-450); RBC Distribution Width CV 12.2 % (11.6-14.6); Red Blood Count 4.15 M/mm3 (4.2-5.4); White Blood Count 7.1 K/mm3 (4.4-11.0)
[2024-11-03 18:20] LABS: ALB/GLOB Ratio 0.9 RATIO (0.9-2.4); AST(SGOT) 21 U/L (15-37); Alanine Aminotransfer ALT/SGPT 41 U/L (13-56); Albumin, Serum 3.6 g/dL (3.2-5.0); Alkaline Phosphatase 57 U/L (45-117); Anion Gap 9 (5-15); BUN 22 mg/dL (7-18); BUN/Creat Ratio 19.6 RATIO (10-20); Chloride 106 mmol/L (98-107); Creatinine, Serum 1.12 mg/dL (0.55-1.02); EST Glomerular Filtration Rate 55 mL/min (>60); Est Glom Filt Rate - Afr Amer 66 mL/min (>60); Ferritin 96 ng/mL (8-252); Globulin 4.2 g/dL (2.2-4.2); Glucose 97 mg/dL (74-106); Iron 43 ug/dL (50-170); Potassium 3.6 mmol/L (3.5-5.1); Protein, Total 7.8 g/dL (6.4-8.2); Sodium Level 138 mmol/L (136-145)
[2024-11-03 18:33] LABS: Vitamin B12 > 2000 pg/mL (211-911); Vitamin D,25 Hydroxy 41.2 ng/mL
== END | disposition home or self-care (01) ==
LOC: BFHLAB 16:27
PROVIDERS: PCP Family Medicine; Visit Provider Nurse Practitioner Family
DX: R53.83 Other fatigue (principal)
CPT/HCPCS: 36415; 80053; 82306; 82607; 82728; 83540; 85025

== ENCOUNTER → 2024-11-18 | Outpatient (CLI) | payer BC, SELFPAY ==
--- NOTE | 2024-11-18 16:01 | BI_ITS ---
PROCEDURE: SCRN MAMM (CAD)W/[place] BILAT REASON FOR EXAM: F, Age 49 y/o, presents for annual screening mammogram. No family history of breast cancer. TECHNIQUE: Bilateral screening digital breast tomosynthesis with 2D and 3D images. Computer aided detection. COMPARISON: 11/12/2021, 07/13/2019 FINDINGS: There are scattered areas of fibroglandular density. The focal asymmetry in the slightly upper outer right breast at posterior depth has progressively increased in size when compared to prior examinations dating back to 2019. No suspicious masses, areas of developing architectural distortion, or suspicious calcifications in the left breast. BI/SCRN MAMM (CAD)W/[place] BILAT IMPRESSION: The focal asymmetry in the slightly upper outer right breast at posterior depth requires further evaluation. Diagnostic mammogram and ultrasound are recommended. BI-RADS 0: INCOMPLETE - NEED ADDITIONAL IMAGING EVALUATION. Follow-up code: Additional Views obtained/call backs The patient will be notified of the results by letter. Reading Location: [id number]
== END | disposition home or self-care (01) ==
LOC: OPBI 16:00
PROVIDERS: PCP Family Medicine; Referring Provider Nurse Practitioner Family; Visit Provider Nurse Practitioner Family
DX: Z12.31 Encounter for screening mammogram for malignant neoplasm of breast (principal)
CPT/HCPCS: 77063; 77067

== ENCOUNTER → 2024-11-24 | Outpatient (CLI) | payer BC, SELFPAY ==
--- NOTE | 2024-11-24 14:19 | US_ITS ---
PROCEDURE: BREAST LIMITED UNILATERAL REASON FOR EXAM: Abnormal screening mammogram. COMPARISON: Comparison is made with prior mammogram done earlier today as well as prior mammogram dated November 18, 2024. TECHNIQUE: Targeted ultrasound of the right breast was obtained. FINDINGS: RIGHT: Ultrasound targeted to the upper-outer quadrant of the right breast. The breast tissue appears sonographically normal. No cyst, solid mass, or suspicious shadowing. US/Breast Limited Unilateral IMPRESSION: No abnormality is seen. BI-RADS category 1. Reading Location: [id number]
--- NOTE | 2024-11-24 14:19 | BI_ITS ---
PROCEDURE: DIAG MAMM W/CAD, UNILAT REASON FOR EXAM: Abnormal screening mammogram. TECHNIQUE: The patient was recalled for additional views. Compression spot views of the right breast were obtained. A 90 degree lateral view was obtained as well. Computer aided detection. COMPARISON: Prior exam(s) dating back to November 18, 2024.. FINDINGS: There are scattered areas of fibroglandular density. No suspicious abnormality is seen. Targeted sonographic correlation recommended. BI/DIAG MAMM W/CAD, UNILAT IMPRESSION: Targeted sonographic correlation recommended. Follow-up code: BI-RADS category 0. Reading Location: [facility]
== END | disposition home or self-care (01) ==
PROVIDERS: PCP Family Medicine; Referring Provider Nurse Practitioner Family; Visit Provider Nurse Practitioner Family
DX: R92.8 Other abnormal and inconclusive findings on diagnostic imaging of breast (principal)
CPT/HCPCS: 76642; 77061; 77065; G0279

== ENCOUNTER → 2024-12-01 | Outpatient (CLI) | payer BC, SELFPAY ==
--- NOTE | 2024-12-01 14:39 | RAD_ITS ---
EXAM: XR Right Foot Complete, 3 or More Views CLINICAL INDICATION: PAIN/ RULE OUT FRACTURE TECHNIQUE: Frontal, lateral and oblique views of the right foot. COMPARISON: No relevant prior studies available. FINDINGS: BONES/JOINTS: See below. SOFT TISSUES: Soft tissue swelling without acute fracture. No radiopaque foreign body. RAD/Foot min 3 Views IMPRESSION: 1. Soft tissue swelling without acute fracture. 2. If symptoms persist, further evaluation with CT is recommended. Reading Location: [facility]
== END | disposition home or self-care (01) ==
LOC: MTRAD 14:37
PROVIDERS: PCP Family Medicine; Referring Provider Nurse Practitioner Family; Visit Provider Nurse Practitioner Family
DX: M79.671 Pain in right foot (principal)
CPT/HCPCS: 73630

== ENCOUNTER → 2024-12-03 | Outpatient (CLI) | payer BC, SELFPAY | END | disposition home or self-care (01) | LOC: SL 20:01 | PROVIDERS: PCP Family Medicine; Referring Provider Nurse Practitioner Family; Visit Provider Nurse Practitioner Family | DX: G47.19 Other hypersomnia (principal) | CPT/HCPCS: 95810 ==

== ENCOUNTER → 2024-12-28 | Outpatient (CLI) | payer BC, SELFPAY | END | disposition home or self-care (01) | LOC: SL 15:29 | PROVIDERS: PCP Family Medicine; Visit Provider Nurse Practitioner Family | DX: Z46.89 Encounter for fitting and adjustment of other specified devices (principal) ==